=== PATIENT | male | born 2000 | race Caucasian/White ===

== ENCOUNTER 2019-11-21 09:14 | Emergency (ER) | payer OTHER ==
[2019-11-21] MEDS ORDERED: NORMAL SALINE 1000 ML 1,000 ML IV ONE (10:04)
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
[2019-11-21 10:43] LABS: HEMATOCRIT 47.9 % (37.9-51.0); MEAN CORPUSCULAR HEMOGLOBIN 32.2 pg (27.0-33.4); MEAN CORPUSCULAR HGB CONC 35.5 g/dL (32.0-36.0); MEAN CORPUSCULAR VOLUME 91 fl (80-97); PLATELET COUNT 235 10^3/uL (150-450); RED BLOOD COUNT 5.28 10^6/uL (4.35-5.55); RED CELL DISTRIBUTION WIDTH 12.5 % (11.5-14.0); WHITE BLOOD COUNT 6.2 10^3/uL (4.0-10.5)
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
[2019-11-21 10:58] LABS: ALBUMIN 4.7 g/dL (3.5-5.0); ALKALINE PHOSPHATASE 65 U/L (38-126); ANION GAP 6 (5-19); ASPARTATE AMINO TRANSFERASE 33 U/L (17-59); BILIRUBIN,TOTAL 0.6 mg/dL (0.2-1.3); BLOOD UREA NITROGEN 11 mg/dL (7-20); CALCIUM 9.4 mg/dL (8.4-10.2); CARBON DIOXIDE 32 mmol/L (22-30); CHLORIDE 101 mmol/L (98-107); GLUCOSE 97 mg/dL (75-110); POTASSIUM 4.4 mmol/L (3.6-5.0); TOTAL PROTEIN 7.7 g/dL (6.3-8.2)
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
[2019-11-21 11:33] LABS: APPEARANCE,URINE CLEAR; BILIRUBIN,URINE NEGATIVE (NEGATIVE); COLOR,URINE STRAW; GLUCOSE, URINE NEGATIVE (NEGATIVE); KETONES,URINE NEGATIVE (NEGATIVE); LEUKOCYTE ESTERASE,URINE NEGATIVE (NEGATIVE); NITRITE,URINE NEGATIVE (NEGATIVE); PROTEIN,URINE NEGATIVE (NEGATIVE); URINE SPECIFIC GRAVITY 1.027; UROBILINOGEN,URINE NEGATIVE mg/dL (<2.0)
[2019-11-21] MEDS ORDERED: KETOROLAC TROMETHAMINE INJ/PF 30 MG/1 ML SDV IV ONE (11:52)
[2019-11-21 12:03] VITALS: BP 130/71
== END 2019-11-21 12:03 | disposition home or self-care (01) ==
LOC: ER 09:14
DX: S30.811A Abrasion of abdominal wall, initial encounter (principal); M79.642 Pain in left hand; R07.89 Other chest pain; M25.571 Pain in right ankle and joints of right foot; R10.9 Unspecified abdominal pain; J34.89 Other specified disorders of nose and nasal sinuses; R07.9 Chest pain, unspecified; M25.552 Pain in left hip; M25.551 Pain in right hip; V89.2XXA Person injured in unspecified motor-vehicle accident, traffic, initial encounter
CPT/HCPCS: 99284; 96372; 96360; 36415; 85027; 80053; 81001; 73610; 73130; 70160; 71260; 74177; J1885; J7030